=== PATIENT | female | born 1975 | race American Indian/Alaskan Native ===

== ENCOUNTER 2017-10-07 13:03 | Emergency (ER) | payer MEDICAID ==
[2017-10-07 13:37] VITALS: BP 150/93
[2017-10-07] MEDS ORDERED: XYLOCAINE 1% MPF 5 mL ONE (14:23)
[2017-10-07] MEDS ORDERED: MOTRIN ONE (14:23)
[2017-10-07] MEDS ORDERED: MOTRIN PO ONE (14:27)
[2017-10-07] MEDS ORDERED: XYLOCAINE 1% 20 mL INFILTRATI ONE (14:27)
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
--- NOTE | 2017-10-08 14:30 | XRay Report ---
FINAL REPORT PROCEDURE: XR TOE(S) 2+V RT TECHNIQUE: Right toes, three views HISTORY: toe pain, abscess on right great toe COMPARISON: No prior studies are available for comparison. FINDINGS: No fracture or dislocation is seen. No focal osseous lesions. There is soft tissue swelling. No cortical erosion is seen. No radiopaque foreign body. IMPRESSION: No acute osseous abnormality is identified
== END 2017-10-07 15:42 | disposition home or self-care (01) ==
LOC: ED 13:03
DX: L02.611 Cutaneous abscess of right foot (principal); M19.90 Unspecified osteoarthritis, unspecified site; G43.909 Migraine, unspecified, not intractable, without status migrainosus; J45.909 Unspecified asthma, uncomplicated; Z88.0 Allergy status to penicillin; Z88.2 Allergy status to sulfonamides; Z90.89 Acquired absence of other organs
CPT/HCPCS: 87076; 87116; 87186

== ENCOUNTER 2017-10-11 08:57 | Emergency (ER) | payer MEDICAID ==
[2017-10-11 09:04] VITALS: BP 150/91
[2017-10-11] MEDS ORDERED: TYLENOL PO ONE (10:05)
[2017-10-11] MEDS ORDERED: NORCO 7.5/325 PO ONE (10:07)
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
== END 2017-10-11 10:20 | disposition home or self-care (01) ==
LOC: ED 08:57
DX: Z48.00 Encounter for change or removal of nonsurgical wound dressing (principal); M19.90 Unspecified osteoarthritis, unspecified site; G43.909 Migraine, unspecified, not intractable, without status migrainosus; J45.909 Unspecified asthma, uncomplicated; Z90.89 Acquired absence of other organs; Z88.0 Allergy status to penicillin; Z88.2 Allergy status to sulfonamides
CPT/HCPCS: 99282